=== PATIENT | male | born 1945 | race African-American/Black ===

== ENCOUNTER 2016-07-08 15:49 | Emergency (ER) | payer MEDICARE, MEDICAID ==
[~2016-07-08] VITALS: Ht 195.6 cm; Wt 123.7 kg
[~2016-07-08 15:49] MED LIST: 1-ME1LIQ PO; CIPR500T4 PO; COLE625 PO; ENAL20TA PO; GLIM4TAB PO; JANU100T PO; LIPI20TA PO; METF-324 PO; METF500 PO; METO50TA PO; ST JTAB PO
[2016-07-08 16:21] VITALS: BP 139/67; PULSE 68; RESP 18; TEMP 98.3; O2SAT 96
[2016-07-08] MEDS ORDERED: ENAL20TA PO (16:52)
[2016-07-08] MEDS ORDERED: METF1000 PO (16:52)
[2016-07-08] MEDS ORDERED: ATOR1TAB18 PO (16:52)
[2016-07-08] MEDS ORDERED: METO50TA PO (16:52)
[2016-07-08] MEDS ORDERED: AMLO10TA2 PO (16:52)
[2016-07-08] MEDS ORDERED: GLIM4TAB PO (16:52)
[2016-07-08] MEDS ORDERED: SITA1TAB2 PO (16:52)
[2016-07-08] MEDS ORDERED: ASPI1TAB69 PO (16:52)
[2016-07-08] MEDS ORDERED: WELC625T2 PO (16:52)
[2016-07-08] MEDS ORDERED: VENTAER INH (16:52)
[2016-07-08] MEDS ORDERED: SYMB80AE INH (16:52)
--- NOTE | 2016-07-08 16:56 | PD ---
HPI Chief Complaint: Complaint Time Seen by Provider: 16:53 Travel History International Travel<30 days: No Contact w/Intl Traveler<30days: No Traveled to known affect area: No History of Present Illness HPI 70-year-old male that presents to the ED for evaluation of cold-like symptoms for 2 weeks and urinary tract infection for the past week. Per patient she's been having cough and runny nose for the past 2 weeks. Per patient he has family over to his house who has been having cold-like symptoms. He does have a history of COPD in the past but denies any shortness of breath. Per patient he mostly has coughed doesn't go away as well as congestion. He denies any chest pain. Per patient the cough is productive. Medications disease reports that his been having some dysuria and polyuria. Urgency for the past week. 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 Patient states that he is not sure this is related but he will like this to be assessed as well. He denies any abdominal pain. No flank pain. No hematuria. Nothing seems to make the symptoms better or worse. His been taking OTC meds with minimal relief. He has no known allergies to medication. PFSH Past Medical History Hx Anticoagulant Therapy: Yes (asa 81mg) Cardiac Catheterization: Yes Cardiovascular Problems: Yes (htn on meds, ME x 2 with 2 stents , defib) High Cholesterol: Yes Chest Pain: Yes Coronary Artery Disease: Yes Diabetes: Yes (type 2) Patient Takes Glucophage: Yes Diminished Hearing: No Hypertension: Yes Immunizations Current: Yes (shingles also) Myocardial Infarction: Yes (X2) Past Surgical History Cardiac Surgery: Yes (AICD) Coronary Stent: Yes (x5) Pacemaker: Yes (AICD) Social History Alcohol Use: No Tobacco Use: No (QUIT 25+ YRS AGO SMOKED 3/4 PPD) Substance Use: No Allergies-Medications (Allergen,Severity, Reaction): Coded Allergies: No Known Allergies (Unverified , 07/08/16) Reported Meds & Prescriptions Reported Meds & Active Scripts Active Medrol Dosepak (Methylprednisolone) 4 Mg Dspk 4 Mg PO DIRECTED Per Pharmacist direction Tessalon Perles (Benzonatate) 100 Mg Cap 100 Mg PO TID PRN Cipro (Ciprofloxacin HCl) 500 Mg Tab 500 Mg PO BID 7 Days Reported Symbicort Inh (Budesonide/Formoterol Fumarate) 80-4.5 Mcg/Act Aero 2 Puff INH Q12HR Ventolin Hfa 18 GM Inh (Albuterol Sulfate) 90 Mcg/Act Aer 2 Puff INH Q4-6H PRN Welchol (Colesevelam HCl) 625 Mg Tab 1,875 Mg PO BID Amlodipine (Amlodipine Besylate) 10 Mg Tab 10 Mg PO DAILY Atorvastatin (Atorvastatin Calcium) 80 Mg Tab 80 Mg PO HS Aspirin 81 Mg Tabdr 81 Mg PO DAILY Januvia (Sitagliptin Phosphate) 100 Mg Tab 100 Mg PO DAILY Metoprolol Tartrate 50 Mg Tab 50 Mg PO BID Enalapril (Enalapril Maleate) 20 Mg Tab 20 Mg PO BID Glimepiride 4 Mg Tab 4 Mg PO BIDAC Metformin (Metformin HCl) 1,000 Mg Tab 1,000 Mg PO BIDPC With meals Review of Systems General / Constitutional: No: Fever, Chills, Weight Gain, Weight Loss, Other Eyes: No: Diploplia, Blurred Vision, Photophobia, Drainage, Redness, Foreign Body Sensation, Pain, Tearing, Blind Spots, Visual changes, Blindness, Other HENT: Positive: Rhinitis, Congestion, No: Headaches, Vertigo, Lightheadedness , Sore Throat, Rhinorrhea, Nosebleed, Neck Stiffness, Neck Pain, Masses, Gingival Bleeding, Dental Difficulties, Ear Discharge, Earache, Other Cardiovascular: No: Chest Pain or Discomfort, Palpitations, Irregular Rhythm, Tachycardia, Diaphoresis, Syncope, Dyspnea on exertion, Varicosities, Edema, Cyanosis, Varicosities, Phlebitis, Claudication, Other Respiratory: Positive: Cough, No: Shortness of Breath, Wheezing, Sneezing, Orthopnea, Hemoptysis, Stridor, Night Sweats, Pleuritic Pain, Other Gastrointestinal: No: Nausea, Vomiting, Diarrhea, Abdominal Pain, Hematemesis, Hematochezia, Constipation, Changes in Bowel Habits, Indigestion, Dysphagia, Loss of Appetite, Other Genitourinary: Positive: Urgency, Frequency, Dysuria, No: Nocturia, Hematuria , Decreased Urinary Output, Oliguria, Hesitancy, Dribbling, Incontinence, Pelvic Pain, Flank Pain, Dyspareunia, Discharge, Dysmenorrhea, Menorrhagia, Metorrhagia, Vaginal Bleeding, Other Musculoskeletal: No: Myalgias, Arthralgias, Limited ROM, Weakness, Cramping, Edema, Pain, Atrophy, Other Skin: No Rash, No Itching, No Dryness, No Lumps, No Hives, No Change in Pigmentation, No Change in nails, No Alopecia, No Lesions, No Breast Lumps, No Breast Tenderness, No Breast Swelling, No Other Neurologic: No: Weakness, Dizziness, Syncope, Focal Abnormalities, Coordination Problem, Tremor, Ataxia, Headache, Change in Mentation, Slurred Speech, Paresthesia, Incontinence, Seizures, Sensory Disturbance, Other Psychiatric: No: Anxiety, Depression, Suicidal Ideations, Disorder of Thought, Mood Disorder, Substance Abuse, Homicidal Ideation, Other Endocrine: No: Heat Intolerance, Cold Intolerance, Polyuria, Polydipsia, Other Hematologic/Lymphatic: No: Easy Bruising, Lymph Node Enlargement, Other Physical Exam Narrative GENERAL: Well-nourished, well-developed patient in no apparent distress. SKIN: Warm and dry. HEAD: Atraumatic. Normocephalic. EYES: Pupils equal and round reactive to light and accommodation. No scleral icterus. No injection or drainage. ENT: No nasal bleeding or discharge. Mucous membranes pink and moist. TMs are clear with no sign of infection or perforation. No mastoid tenderness. Ear canals are intact bilaterally. No lymphadenopathy. Nostril mucosa is red and moist with clear mucus noted. No sinus tenderness to palpation noted. Tonsils are not enlarged or swollen. No ulvua Deviation. Tongue is midline. NECK: Trachea midline. No JVD. No meningeal signs noted CARDIOVASCULAR: Regular rate and rhythm. RESPIRATORY: No accessory muscle use. Clear to auscultation. Breath sounds equal bilaterally. GASTROINTESTINAL: Abdomen soft, non-tender, nondistended. Hepatic and splenic margins not palpable. MUSCULOSKELETAL: Extremities without clubbing, cyanosis, or edema. No obvious deformities. NEUROLOGICAL: Awake and alert. No obvious cranial nerve deficits. Motor grossly within normal limits. Five out of 5 muscle strength in the arms and legs. Normal speech. PSYCHIATRIC: Appropriate mood and affect; insight and judgment normal. Data Data Last Documented VS Vital Signs Date Time Temp Pulse Resp B/P Pulse Ox O2 Delivery O2 Flow Rate FiO2 07/08/16 16:21 98.3 68 18 139/67 96 Orders Urinalysis - C+S If Indicated (07/08/16 16:47) Chest, Single Ap (07/08/16 ) Urine Culture (07/08/16 16:45) Labs Laboratory Tests Test 07/08/16 16:45 Urine Collection Type CLEAN CATCH Urine Color STRAW Urine Turbidity SLIGHT Urine pH 5.5 Urine Specific [place] 1.009 Urine Protein NEG mg/dL Urine Glucose (UA) 250 mg/dL Urine Ketones NEG mg/dL Urine Occult Blood NEG Urine Nitrite NEG Urine Bilirubin NEG Urine Leukocyte Esterase SMALL Urine RBC 0-3 /hpf Urine WBC 25-49 /hpf Urine WBC Clumps FEW Urine Squamous Epithelial 6-8 /hpf Cells Urine Amorphous Sediment FEW Urine Bacteria FEW /hpf Microscopic Urinalysis Comment CULTURE INDICATED Urine Collection Time 1645 MDM Medical Decision Making Medical Screen Exam Complete: Yes Emergency Medical Condition: Yes Medical Record Reviewed: Yes Interpretation(s) CXR negative for acute disease UA shows UTI Differential Diagnosis Sinusitis versus upper respiratory infection versus bronchitis versus pneumonia versus UTI Narrative Course 70-year-old male that presents to the ED for evaluation of cold-like symptoms and possible UTI. Patient was properly examined and was found to have signs and symptoms consistent appears to be bronchitis and possible UTI. Chest x-ray was done to rule out pneumonia as well as urinalysis to see if patient does have a UTI. Labs and imaging showed no sign of acute pneumonia. Patient was reassured. From history and physical this appears to be bronchitis. Patient's urine did show UTI. We'll treat this with Cipro to cover for both upper respiratory infection as well as urinary tract infection. Patient was given Tessalon Perles for cough. Medrol Dosepak to help with the congestion as well is a bronchitis versus patient does have a history of COPD. Patient was instructed that his sugars will likely go SECONDARY to the steroids. Told to follow up diet. Take OTC meds as needed. Follow up with PCP. See ED for worsening symptoms. Diagnosis Primary Impression: Bronchitis Additional Impression: UTI (urinary tract infection) Qualified Code: N30.00 - Acute cystitis without hematuria Patient Instructions: General Instructions Additional Instructions: Motrin and Tylenol for pain and fever. You can use [id number] antihistamine as well as well as Mucinex as needed for runny nose and congestion. Cough drops for cough as needed. Drink plenty of fluids. Follow-up with PCP. See ED for worsening symptoms. Med/Other Pt SpecificInfo: Prescription(s) given Scripts Methylprednisolone Dosepak (Medrol Dosepak)4 Mg Dspk4 Mg PO DIRECTED #1 DSPK Ref 0 Per Pharmacist direction Prov:Elliott Guzman MD 07/08/16 Benzonatate (Tessalon Perles)100 Mg [id number] Mg PO TID PRN (COUGH) #20 CAP Prov:Elliott Guzman MD 07/08/16 Ciprofloxacin (Cipro)500 Mg [id number] Mg PO BID 7 Days Prov:Elliott Guzman MD 07/08/16 Disposition: 01 DISCHARGE HOME Condition: Matt Benjamin Jul 08, 2016 16:56
[2016-07-08 16:59] LABS: BLOOD, URINE NEG (NEG); GLUCOSE,URINE 250 mg/dL (NEG); KETONE, URINE NEG (NEG); NITRITE,URINE NEG (NEG); PH, URINE 5.5 (5.0-8.5)
[2016-07-08 17:01] LABS: METHOD OF COLLECTION CLEAN CATCH
[2016-07-08 17:02] LABS: URINE COLOR STRAW (YELLW/STRAW)
[2016-07-08 17:03] LABS: BACTERIA, URINE FEW /hpf; CULTURE IF INDICATED CULTURE INDICATED; RBC, URINE 0-3 /hpf (0-3)
[2016-07-08 17:04] LABS: COMMENT (UR) CULTURE INDICATED; COMMENT2 (UR) MUCOUS PRESENT
[2016-07-08] MEDS ORDERED: MEDR4PAK PO (17:16)
[2016-07-08] MEDS ORDERED: BENZ100 PO (17:16)
[2016-07-08] MEDS ORDERED: CIPR-9 PO (17:16)
--- NOTE | 2016-07-08 18:34 | RADHPO ---
EXAM DATE/TIME: 07/08/2016 17:45 [facility] COMPARISON: CHEST SINGLE AP, July 24, 2015, 13:45. INDICATIONS : Cough, short of breath MEDICAL HISTORY : Diabetes mellitus type II. SURGICAL HISTORY : Pacemaker. ENCOUNTER: Initial ACUITY: 2 weeks PAIN SCORE: 0/10 LOCATION: Bilateral chest FINDINGS: A single view of the chest demonstrates the lungs to be symmetrically aerated without evidence of mas s, infiltrate or effusion. There is mild scarring and/or atelectasis at the left lung base. The cardi omediastinal contours are unremarkable. Osseous structures are intact. The left subclavian transveno us pacer remains in place. CONCLUSION: 1. Mild scarring and/or atelectasis at the left lung base. 2. No evidence of pneumonia. Luis Abraham MD on July 08, 2016 at 18:32 Board Certified Radiologist. This report was verified electronically.
== END 2016-07-08 18:50 | disposition home or self-care (01) ==
LOC: PHEFT 15:49
DX: J40 Bronchitis, not specified as acute or chronic (principal); N30.00 Acute cystitis without hematuria; B95.7 Other staphylococcus as the cause of diseases classified elsewhere; E11.9 Type 2 diabetes mellitus without complications; I10 Essential (primary) hypertension; E78.00 Pure hypercholesterolemia, unspecified; Z79.82 Long term (current) use of aspirin; Z79.84 Long term (current) use of oral hypoglycemic drugs; Z87.09 Personal history of other diseases of the respiratory system; Z86.79 Personal history of other diseases of the circulatory system; Z87.891 Personal history of nicotine dependence
CPT/HCPCS: 71010; 81001; 86403; 87077; 87086; 87186; 99283

== ENCOUNTER 2016-12-28 11:32 | Emergency (ER) | payer OTHER, MEDICAID ==
[~2016-12-28 11:32] MED LIST changes: -1-ME1LIQ PO; +AMLO10TA2 PO; +ASPI1TAB69 PO; +ATOR1TAB18 PO; +BENZ100 PO; +CIPR-9 PO; -CIPR500T4 PO; -COLE625 PO; -JANU100T PO; -LIPI20TA PO; +MEDR4PAK PO; -METF-324 PO; +METF1000 PO; -METF500 PO; +SITA1TAB2 PO; -ST JTAB PO; +SYMB80AE INH; +VENTAER INH; +WELC625T2 PO
[2016-12-28 11:45] VITALS: BP 180/90; PULSE 76; RESP 22; TEMP 99; O2SAT 95
[2016-12-28] MEDS ORDERED: ASPI81CH CHEW (11:51)
--- NOTE | 2016-12-28 11:55 | PD ---
HPI Chief Complaint: Respiratory Distress Time Seen by Provider: 11:41 Travel History International Travel<30 days: No Contact w/Intl Traveler<30days: No Traveled to known affect area: No History of Present Illness HPI The patient is a 71-year-old [place] male who presents emergency department for shortness of breath and cough. The patient states he developed a dry and nonproductive cough 3 days ago. He then developed bilateral anterior abdominal wall pain secondary to the coughing. The patient was seen by his primary physician yesterday, Dr. Camilo Navas, who prescribed him to medications. The patient does not know the names of his medications. The patient states he awakened this morning with mild shortness of breath. The patient was prescribed Symbicort and a Ventolin inhaler in the past, is unsure why, but denies any known history of COPD or bronchitis. The patient denies any history congestive heart failure, however, does state he has a pacemaker in place. He denies any acute chest pain, nausea, vomiting, chills, or sweats. He denies any lower extremity edema. The patient denies any history of pulmonary embolism or DVT. PFSH Past Medical History Hx Anticoagulant Therapy: Yes (asa 81mg) Cardiac Catheterization: Yes Cardiovascular Problems: Yes (AICD) High Cholesterol: Yes Chest Pain: Yes Coronary Artery Disease: Yes Diabetes: Yes (type 2) Diminished Hearing: No Hypertension: Yes Immunizations Current: Yes (shingles also) Myocardial Infarction: Yes (X2) Past Surgical History Cardiac Surgery: Yes (AICD) Coronary Stent: Yes (x5) Pacemaker: Yes (AICD) Social History Alcohol Use: No Tobacco Use: No (QUIT 25+ YRS AGO SMOKED 3/4 PPD) Substance Use: No Allergies-Medications (Allergen,Severity, Reaction): Coded Allergies: No Known Allergies (Unverified , 07/08/16) Reported Meds & Prescriptions Reported Meds & Active Scripts Active Medrol Dosepak (Methylprednisolone) 4 Mg Dspk 4 Mg PO DIRECTED Per Pharmacist direction Tessalon Perles (Benzonatate) 100 Mg Cap 100 Mg PO TID PRN Cipro (Ciprofloxacin HCl) 500 Mg Tab 500 Mg PO BID 7 Days Reported Aspirin 81 Mg Chew 81 Mg CHEW DAILY Symbicort Inh (Budesonide/Formoterol Fumarate) 80-4.5 Mcg/Act Aero 2 Puff INH Q12HR Ventolin Hfa 18 GM Inh (Albuterol Sulfate) 90 Mcg/Act Aer 2 Puff INH Q4-6H PRN Welchol (Colesevelam HCl) 625 Mg Tab 1,875 Mg PO BID Amlodipine (Amlodipine Besylate) 10 Mg Tab 10 Mg PO DAILY Atorvastatin (Atorvastatin Calcium) 80 Mg Tab 80 Mg PO HS Januvia (Sitagliptin Phosphate) 100 Mg Tab 100 Mg PO DAILY Metoprolol Tartrate 50 Mg Tab 50 Mg PO BID Enalapril (Enalapril Maleate) 20 Mg Tab 20 Mg PO BID Glimepiride 4 Mg Tab 4 Mg PO BIDAC Metformin (Metformin HCl) 1,000 Mg Tab 1,000 Mg PO BIDPC With meals Review of Systems Except as stated in HPI: all other systems reviewed are Neg General / Constitutional: No: Fever Cardiovascular: No: Chest Pain or Discomfort Respiratory: Positive: Cough, Shortness of Breath, Wheezing Gastrointestinal: No: Nausea, Vomiting Musculoskeletal: No: Edema Neurologic: No: Dizziness Physical Exam Narrative GENERAL: Awake, alert, pleasant 71-year-old male who appears his stated age and is in no acute respiratory distress. SKIN: Focused skin assessment warm/dry. HEAD: Atraumatic. Normocephalic. EYES: Pupils equal and round. No scleral icterus. No injection or drainage. ENT: No nasal bleeding or discharge. Mucous membranes pink and moist. NECK: Trachea midline. No JVD. CARDIOVASCULAR: Regular rate and rhythm. No murmur appreciated. Pacemaker in place left chest wall. RESPIRATORY: No accessory muscle use. Prolonged expiratory phase with wheezes in all 4 lung sheehan. GASTROINTESTINAL: Abdomen soft, non-tender, nondistended. No rebound tenderness. MUSCULOSKELETAL: No obvious deformities. No clubbing. No cyanosis. Trace edema to lower chin bilaterally. NEUROLOGICAL: Awake and alert. No obvious cranial nerve deficits. Motor grossly within normal limits. Normal speech. PSYCHIATRIC: Appropriate mood and affect; insight and judgment normal. Data Data Last Documented VS Vital Signs Date Time Temp Pulse Resp B/P (MAP) Pulse Ox O2 Delivery O2 Flow Rate FiO2 12/28/16 12:02 22 96 Room Air 12/28/16 11:45 99.0 76 180/90 (120) Orders Orders Complete Blood Count With Diff (12/28/16 11:49) Comprehensive Metabolic Panel (12/28/16 11:49) B-Type Natriuretic Peptide (12/28/16 11:49) Magnesium (Mg) (12/28/16 11:49) Ckmb (Isoenzyme) Profile (12/28/16 11:49) Troponin I (12/28/16 11:49) Iv Access Insert/Monitor (12/28/16 11:49) Electrocardiogram (12/28/16 11:49) Ecg Monitoring (12/28/16 11:49) Oximetry (12/28/16 11:49) Oxygen Administration (12/28/16 11:49) Chest, Single Ap (12/28/16 11:49) Sodium Chloride 0.9% Flush (Ns Flush) (12/28/16 12:00) Methylprednisolone So Succ Inj (Solumedr (12/28/16 12:00) Albuterol-Ipratropium Neb (Duoneb Neb) (12/28/16 12:00) Lidocaine Pf 4% Neb (Lidocaine Pf 4% Neb (12/28/16 12:00) CKMB (12/28/16 11:45) CKMB% (12/28/16 11:45) Labs Laboratory Tests Test 12/28/16 11:45 White Blood Count 5.4 TH/MM3 Red Blood Count 3.99 MIL/MM3 Hemoglobin 10.8 GM/DL Hematocrit 33.5 % Mean Corpuscular Volume 83.9 FL Mean Corpuscular Hemoglobin 27.0 PG Mean Corpuscular Hemoglobin Concent 32.2 % Red Cell Distribution Width 13.9 % Platelet Count 127 TH/MM3 Mean Platelet Volume 9.5 FL Neutrophils (%) (Auto) 64.4 % Lymphocytes (%) (Auto) 11.7 % Monocytes (%) (Auto) 14.4 % Eosinophils (%) (Auto) 9.2 % Basophils (%) (Auto) 0.3 % Neutrophils # (Auto) 3.5 TH/MM3 Lymphocytes # (Auto) 0.6 TH/MM3 Monocytes # (Auto) 0.8 TH/MM3 Eosinophils # (Auto) 0.5 TH/MM3 Basophils # (Auto) 0.0 TH/MM3 CBC Comment DIFF FINAL Differential Comment Blood Urea Nitrogen 19 MG/DL Creatinine 1.30 MG/DL Random Glucose 231 MG/DL Total Protein 7.8 GM/DL Albumin 4.1 GM/DL Calcium Level 9.5 MG/DL Magnesium Level 1.5 MG/DL Alkaline Phosphatase 81 U/L Aspartate Amino Transf (AST/SGOT) 15 U/L Alanine Aminotransferase (ALT/SGPT) 23 U/L Total Bilirubin 0.5 MG/DL Sodium Level 136 MEQ/L Potassium Level 4.3 MEQ/L Chloride Level 105 MEQ/L Carbon Dioxide Level 22.8 MEQ/L Anion Gap 8 MEQ/L Estimat Glomerular Filtration Rate 66 ML/MIN Total Creatine Kinase 126 U/L Creatine Kinase MB 1.9 NG/ML Troponin I LESS THAN 0.02 NG/ML B-Type Natriuretic Peptide 136 PG/ML MDM Medical Decision Making Medical Screen Exam Complete: Yes Emergency Medical Condition: Yes Medical Record Reviewed: Yes Interpretation(s) EKG reveals sinus rhythm with a rate of 71. First-degree AV block with IA interval 224 ms. Left bundle branch block. Left bundle-branch block appears new from EKG last seen on July 24, 2015. Patient does have pacemaker in place. Laboratory Tests Test 12/28/16 11:45 White Blood Count 5.4 TH/MM3 Red Blood Count 3.99 MIL/MM3 Hemoglobin 10.8 GM/DL Hematocrit 33.5 % Mean Corpuscular Volume 83.9 FL Mean Corpuscular Hemoglobin 27.0 PG Mean Corpuscular Hemoglobin Concent 32.2 % Red Cell Distribution Width 13.9 % Platelet Count 127 TH/MM3 Mean Platelet Volume 9.5 FL Neutrophils (%) (Auto) 64.4 % Lymphocytes (%) (Auto) 11.7 % Monocytes (%) (Auto) 14.4 % Eosinophils (%) (Auto) 9.2 % Basophils (%) (Auto) 0.3 % Neutrophils # (Auto) 3.5 TH/MM3 Lymphocytes # (Auto) 0.6 TH/MM3 Monocytes # (Auto) 0.8 TH/MM3 Eosinophils # (Auto) 0.5 TH/MM3 Basophils # (Auto) 0.0 TH/MM3 CBC Comment DIFF FINAL Differential Comment Blood Urea Nitrogen 19 MG/DL Creatinine 1.30 MG/DL Random Glucose 231 MG/DL Total Protein 7.8 GM/DL Albumin 4.1 GM/DL Calcium Level 9.5 MG/DL Magnesium Level 1.5 MG/DL Alkaline Phosphatase 81 U/L Aspartate Amino Transf (AST/SGOT) 15 U/L Alanine Aminotransferase (ALT/SGPT) 23 U/L Total Bilirubin 0.5 MG/DL Sodium Level 136 MEQ/L Potassium Level 4.3 MEQ/L Chloride Level 105 MEQ/L Carbon Dioxide Level 22.8 MEQ/L Anion Gap 8 MEQ/L Estimat Glomerular Filtration Rate 66 ML/MIN Total Creatine Kinase 126 U/L Creatine Kinase MB 1.9 NG/ML Troponin I LESS THAN 0.02 NG/ML B-Type Natriuretic Peptide 136 PG/ML Chest x-ray reveals minimal bibasilar parenchymal changes with mild compensated cardiomegaly. Differential Diagnosis Differential diagnoses includes congestive heart failure, bronchitis, COPD, pneumonia, pleural effusion, flash pulmonary edema, acute coronary syndrome, pulmonary embolism. Narrative Course IV was established, labs are drawn and sent, and the patient was placed on cardiac telemetry monitoring and continuous pulse oximetry monitoring. EKG was ordered and interpreted. Chest x-ray was obtained. The patient was administered site Medrol 120, grams intravenously and duo nebs 2 with respiratory lidocaine. BNP was sent to lab. Chest x-ray revealed bibasilar parenchymal changes and mild compensated cardiomegaly, otherwise unremarkable. BNP was mildly elevated over 100, troponin was negative. The patient was reevaluated at 12:45 PM. The patient's wheezing has significantly improved, he did complain of nasal congestion. Patient was advised he is Afrin at night as needed for 2 days duration, [id number] Claritin as needed but not with the decongestion secondary to a history of hypertension. The patient is advised to continue the Zithromax as previously directed, steroids and albuterol inhaler as directed. The patient will be provided a copy of his x- ray results and lab results at discharge. Diagnosis Primary Impression: Bronchitis Patient Instructions: General Instructions Additional Instructions: Please provide a patient a copy of his labs and x-ray results at discharge. Follow-up with your primary physician. Return if symptoms worsen or progress. Take Zithromax as directed by her doctor yesterday. Med/Other Pt SpecificInfo: Prescription(s) given Scripts Albuterol 18 GM Inh (Ventolin Hfa 18 GM Inh) 90 Mcg/Act Aer 2 PUFF INH Q4H Y for SHORTNESS OF BREATH, #1 INHALER 0 Refills Prov: Lorne Ceballos MD 12/28/16 Prednisone (Deltasone) 20 Mg Tab 40 MG PO DAILY for 4 Days, TAB 0 Refills Prov: Lorne Ceballos MD 12/28/16 Disposition: 01 DISCHARGE HOME Condition: Stable Lorne Ceballos MD Dec 28, 2016 11:55
[2016-12-28 12:00] VITALS: O2SAT 94
[2016-12-28] MEDS ORDERED: RESP: LIDOCAINE HCL 4% PF 5 ML NEB NEB ONE (12:00)
[2016-12-28] MEDS ORDERED: methylPREDNISolone SOD SUCC 125 MG/2 ML VIAL IVP ONE (12:00)
[2016-12-28] MEDS ORDERED: SODIUM CHLORIDE 0.9% FLUSH 10 ML FLUSH IVF PRN (12:00)
[2016-12-28 12:03] LABS: AUTOMATED NEUTROPHIL # 3.5 TH/MM3 (1.8-7.7); BASOPHIL % 0.3 % (0.0-2.0); EOSINOPHIL # 0.5 TH/MM3 (0-0.4); EOSINOPHIL % 9.2 % (0.0-4.0); HEMATOCRIT 33.5 % (39.0-51.0); HEMO FLAGS DIFF FINAL; LYMPH % 11.7 % (9.0-44.0); LYMPHOCYTE # 0.6 TH/MM3 (1.0-4.8); MEAN CELL VOLUME 83.9 FL (80.0-100.0); MEAN CORPUSCULAR HGB CONC 32.2 % (32.0-36.0); MONO % 14.4 % (0.0-8.0); NEUT % 64.4 % (16.0-70.0); PLATELET COUNT 127 TH/MM3 (150-450); RED BLOOD COUNT 3.99 MIL/MM3 (4.50-5.90); RED CELL DISTRIBUTION WIDTH 13.9 % (11.6-17.2); WHITE BLOOD COUNT 5.4 TH/MM3 (4.0-11.0)
[2016-12-28 12:08] LABS: CHLORIDE 105 MEQ/L (98-107); POTASSIUM 4.3 MEQ/L (3.5-5.1); SODIUM (NA) 136 MEQ/L (136-145)
[2016-12-28] MEDS: RESP: ALBUTEROL 2.5 MG/IPRATROPIUM 0.5 MG NEB (SCH) INH (12:08)
[2016-12-28 12:12] LABS: ANION GAP 8 MEQ/L (5-15); BICARBONATE 22.8 MEQ/L (21.0-32.0); BLOOD UREA NITROGEN 19 MG/DL (7-18); MAGNESIUM 1.5 MG/DL (1.5-2.5)
[2016-12-28 12:15] LABS: ALT (GPT) 23 U/L (12-78); AST (GOT) 15 U/L (15-37); GLOMERULAR FILTRATION RATE 66 ML/MIN (>89)
[2016-12-28 12:17] LABS: TOTAL BILIRUBIN ADULT 0.5 MG/DL (0.2-1.0)
[2016-12-28 12:18] LABS: ALKALINE PHOSPHATASE 81 U/L (45-117); CREATINE KINASE 126 U/L (39-308)
[2016-12-28 12:31] LABS: CKMB 1.9 NG/ML (0.5-3.6)
--- NOTE | 2016-12-28 12:35 | RADRPT ---
EXAM DATE/TIME: 12/28/2016 12:21 [facility] COMPARISON: CHEST SINGLE AP, July 08, 2016, 17:45. INDICATIONS : Short of breath MEDICAL HISTORY : Myocardial infarction. Hypertension Hypercholesterolemia. SURGICAL HISTORY : Pacemaker. Coronary artery stent. ENCOUNTER: Initial ACUITY: 1 day PAIN SCORE: 0/10 LOCATION: Bilateral chest FINDINGS: Minimal bibasilar parenchymal changes are evident.. Pacer on the left with mild compensated cardiome clement. The portion of the bony skeleton visualized is unremarkable. CONCLUSION: Minimal bibasilar parenchymal changes with mild compensated cardiomegaly. Preston Manriquez MD FACR on December 28, 2016 at 12:32 Board Certified Radiologist. This report was verified electronically.
[2016-12-28] MEDS ORDERED: VENTAER INH (12:51)
[2016-12-28] MEDS ORDERED: PRED-503 PO (12:51)
[2016-12-28 13:32] VITALS: BP 137/70
--- NOTE | 2016-12-29 13:36 | EKG ---
Date Performed: 12/28/2016 Time Performed: 11:55:06 PTAGE: 71 years EKG: Sinus rhythm WITH FIRST DEGREE AV BLOCK LEFT BUNDLE BRANCH BLOCK ABNORMAL ECG PREVIOUS TRACING : 07/24/2015 13.23 Since the prior tracing, QRS duration is wider. DOCTOR: Saeid Sullivan Interpretating Date/Time 12/29/2016 13:34:40
== END 2016-12-28 13:34 | disposition home or self-care (01) ==
LOC: PHED 11:32
DX: J40 Bronchitis, not specified as acute or chronic (principal); R94.31 Abnormal electrocardiogram [ECG] [EKG]; I25.10 Atherosclerotic heart disease of native coronary artery without angina pectoris; E11.9 Type 2 diabetes mellitus without complications; Z79.84 Long term (current) use of oral hypoglycemic drugs; Z95.810 Presence of automatic (implantable) cardiac defibrillator; Z95.5 Presence of coronary angioplasty implant and graft
CPT/HCPCS: 71010; 80053; 82550; 82552; 83735; 83880; 84484; 85025; 93005; 94640; 94664; 96374; 99285; J2930

== ENCOUNTER 2017-04-29 21:31 | Emergency (ER) | payer MEDICAID, OTHER ==
[~2017-04-29] VITALS: Ht 195.6 cm; Wt 125.2 kg
[~2017-04-29 21:31] MED LIST changes: +ASPI-516 CHEW; -ASPI1TAB69 PO; -ATOR1TAB18 PO; +ATOR80TA45 PO; +COLE625 PO; +PRED-503 PO; -WELC625T2 PO
[2017-04-29 21:36] VITALS: BP 163/76; PULSE 88; RESP 20; TEMP 99; O2SAT 96
[2017-04-29 22:00] VITALS: BP 149/66; PULSE 76; RESP 16; O2SAT 94
[2017-04-29] MEDS ORDERED: SODIUM CHLORIDE 0.9% FLUSH 10 ML FLUSH IVF PRN (22:00)
[2017-04-29 22:02] VITALS: RESP 18; O2SAT 94
--- NOTE | 2017-04-29 22:25 | RADRPT ---
EXAM DATE/TIME: 04/29/2017 22:04 [facility] COMPARISON: CHEST SINGLE AP, December 28, 2016, 12:21. INDICATIONS : Shortness of breath. MEDICAL HISTORY : Hypertension. Myocardial infarction. Hypercholesterolemia. SURGICAL HISTORY : Pacemaker. Coronary artery stent. ENCOUNTER: Initial ACUITY: 1 day PAIN SCORE: 0/10 LOCATION: Bilateral chest FINDINGS: A single view of the chest demonstrates the lungs to be symmetrically aerated without evidence of mas s, infiltrate or effusion. The cardiomediastinal contours are unremarkable. Osseous structures are intact. CONCLUSION: Normal examination. Left subclavian pacemaker in good position Igor Cruz MD on April 29, 2017 at 22:22 Board Certified Radiologist. This report was verified electronically.
[2017-04-29 22:31] LABS: AUTOMATED NEUTROPHIL # 10.4 TH/MM3 (1.8-7.7); BASOPHIL % 0.1 % (0.0-2.0); EOSINOPHIL # 0.1 TH/MM3 (0-0.4); EOSINOPHIL % 1.2 % (0.0-4.0); HEMATOCRIT 27.2 % (39.0-51.0); HEMOGLOBIN 8.8 GM/DL (13.0-17.0); LYMPH % 7.2 % (9.0-44.0); LYMPHOCYTE # 0.9 TH/MM3 (1.0-4.8); MEAN CELL VOLUME 80.9 FL (80.0-100.0); MEAN CORPUSCULAR HEMOGLOBIN 26.1 PG (27.0-34.0); MEAN CORPUSCULAR HGB CONC 32.2 % (32.0-36.0); MEAN PLATELET VOLUME 8.2 FL (7.0-11.0); MONO % 9.1 % (0.0-8.0); MONOCYTE # 1.1 TH/MM3 (0-0.9); NEUT % 82.4 % (16.0-70.0); PLATELET COUNT 206 TH/MM3 (150-450); RED BLOOD COUNT 3.36 MIL/MM3 (4.50-5.90); RED CELL DISTRIBUTION WIDTH 13.7 % (11.6-17.2); WHITE BLOOD COUNT 12.5 TH/MM3 (4.0-11.0)
[2017-04-29 23:30] VITALS: BP 121/49; PULSE 60; RESP 14; O2SAT 94
--- NOTE | 2017-04-29 23:42 | PD ---
HPI Chief Complaint: Respiratory Symptoms Time Seen by Provider: 21:41 Travel History International Travel<30 days: No Contact w/Intl Traveler<30days: No Traveled to known affect area: No History of Present Illness HPI Patient is a 71-year-old male comes in complaining of shortness of breath. He says the shortness of breath only comes on when he is in his house. He went to see his doctor today who prescribed him an inhaler as well has azithromycin and Tessalon Perles. He says he went home he started the medications, but he felt sort of breath, so he came into the emergency department. Currently he is feeling fine. He denies having any pain. He denies any chest pain. He denies fever or chills. He denies any coughing. He says he has not used his inhaler, because it prevents him from sleeping. PFSH Past Medical History Hx Anticoagulant Therapy: Yes (asa 81mg) Cardiac Catheterization: Yes Cardiovascular Problems: Yes ([place]) High Cholesterol: Yes Chest Pain: Yes Coronary Artery Disease: Yes Diabetes: Yes Patient Takes Glucophage: Yes Diminished Hearing: No Hypertension: Yes Immunizations Current: Yes (shingles also) Myocardial Infarction: Yes (X2) Tetanus Vaccination: Unknown Influenza Vaccination: No Past Surgical History Cardiac Surgery: Yes (AICD) Coronary Stent: Yes (x5) Pacemaker: Yes (AICD) Social History Alcohol Use: No Tobacco Use: No (QUIT ABOUT 1989/ SMOKED 3/ PPD) Substance Use: No Allergies-Medications (Allergen,Severity, Reaction): Coded Allergies: No Known Allergies (Unverified Adverse Reaction, Unknown, 04/29/17) Reported Meds & Prescriptions Reported Meds & Active Scripts Active Tessalon Perles (Benzonatate) 100 Mg Cap 100 Mg PO TID PRN Reported Zithromax Z-Benson (Azithromycin) 250 Mg Dspk 250 Mg PO DIRECTED 500 MG (2 tabs) day 1, then 1 tab days 2-5. Aspirin 81 Mg Chew 81 Mg CHEW DAILY Symbicort Inh (Budesonide/Formoterol Fumarate) 80-4.5 Mcg/Act Aero 2 Puff INH Q12HR Ventolin Hfa 18 GM Inh (Albuterol Sulfate) 90 Mcg/Act Aer 2 Puff INH Q4-6H PRN Welchol (Colesevelam HCl) 625 Mg Tab 1,875 Mg PO BID Amlodipine (Amlodipine Besylate) 10 Mg Tab 10 Mg PO DAILY Atorvastatin (Atorvastatin Calcium) 80 Mg Tab 80 Mg PO HS Januvia (Sitagliptin Phosphate) 100 Mg Tab 100 Mg PO DAILY Metoprolol Tartrate 50 Mg Tab 50 Mg PO BID Enalapril (Enalapril Maleate) 20 Mg Tab 20 Mg PO BID Glimepiride 4 Mg Tab 4 Mg PO BIDAC Metformin (Metformin HCl) 1,000 Mg Tab 1,000 Mg PO BIDPC With meals Review of Systems Except as stated in HPI: all other systems reviewed are Neg General / Constitutional: No: Fever, Chills Eyes: No: Photophobia HENT: No: Headaches, Lightheadedness Cardiovascular: No: Chest Pain or Discomfort Respiratory: Positive: Shortness of Breath Gastrointestinal: No: Nausea, Vomiting, Abdominal Pain Musculoskeletal: No: Myalgias, Pain Skin: No Rash, No Change in Pigmentation Neurologic: No: Weakness, Dizziness Physical Exam Narrative GENERAL: Awake and alert, in no acute distress. SKIN: Focused skin assessment warm/dry. HEAD: Atraumatic. Normocephalic. EYES: Pupils equal and round. No scleral icterus. ENT: Mucous membranes pink and moist. NECK: Trachea midline. No JVD. CARDIOVASCULAR: Regular rate and rhythm. No murmur appreciated. RESPIRATORY: No accessory muscle use. Clear to auscultation. Breath sounds equal bilaterally. GASTROINTESTINAL: Abdomen soft, non-tender, nondistended. MUSCULOSKELETAL: No obvious deformities. No clubbing. No cyanosis. 2+ bilateral lower extremity edema. No calf tenderness. NEUROLOGICAL: Awake and alert. No obvious cranial nerve deficits. Motor grossly within normal limits. Normal speech. PSYCHIATRIC: Appropriate mood and affect; insight and judgment normal. Data Data Last Documented VS Vital Signs Date Time Temp Pulse Resp B/P (MAP) Pulse Ox O2 Delivery O2 Flow Rate FiO2 04/29/17 23:30 60 14 121/49 (73) 94 Room Air 04/29/17 21:36 99.0 Orders Orders Complete Blood Count With Diff (04/29/17 21:57) Comprehensive Metabolic Panel (04/29/17 21:57) B-Type Natriuretic Peptide (04/29/17 21:57) Troponin I (04/29/17 21:57) Iv Access Insert/Monitor (04/29/17 21:57) Electrocardiogram (04/29/17 21:57) Ecg Monitoring (04/29/17 21:57) Oximetry (04/29/17 21:57) Oxygen Administration (04/29/17 21:57) Chest, Single Ap (04/29/17 21:57) Sodium Chloride 0.9% Flush (Ns Flush) (04/29/17 22:00) Labs Laboratory Tests Test 04/29/17 22:15 White Blood Count 12.5 TH/MM3 Red Blood Count 3.36 MIL/MM3 Hemoglobin 8.8 GM/DL Hematocrit 27.2 % Mean Corpuscular Volume 80.9 FL Mean Corpuscular Hemoglobin 26.1 PG Mean Corpuscular Hemoglobin Concent 32.2 % Red Cell Distribution Width 13.7 % Platelet Count 206 TH/MM3 Mean Platelet Volume 8.2 FL Neutrophils (%) (Auto) 82.4 % Lymphocytes (%) (Auto) 7.2 % Monocytes (%) (Auto) 9.1 % Eosinophils (%) (Auto) 1.2 % Basophils (%) (Auto) 0.1 % Neutrophils # (Auto) 10.4 TH/MM3 Lymphocytes # (Auto) 0.9 TH/MM3 Monocytes # (Auto) 1.1 TH/MM3 Eosinophils # (Auto) 0.1 TH/MM3 Basophils # (Auto) 0.0 TH/MM3 CBC Comment DIFF FINAL Differential Comment Blood Urea Nitrogen 28 MG/DL Creatinine 1.39 MG/DL Random Glucose 237 MG/DL Total Protein 8.0 GM/DL Albumin 3.5 GM/DL Calcium Level 9.7 MG/DL Alkaline Phosphatase 99 U/L Aspartate Amino Transf (AST/SGOT) 7 U/L Alanine Aminotransferase (ALT/SGPT) 14 U/L Total Bilirubin 0.5 MG/DL Sodium Level 136 MEQ/L Potassium Level 4.4 MEQ/L Chloride Level 105 MEQ/L Carbon Dioxide Level 23.5 MEQ/L Anion Gap 8 MEQ/L Estimat Glomerular Filtration Rate 61 ML/MIN Troponin I LESS THAN 0.02 NG/ML B-Type Natriuretic Peptide 345 PG/ML [facility] Medical Decision Making Medical Screen Exam Complete: Yes Emergency Medical Condition: Yes Medical Record Reviewed: Yes Interpretation(s) ECG shows normal sinus rhythm at 73, left bundle branch block. This is unchanged from his previous EKG. Differential Diagnosis COPD exacerbation versus bronchitis versus pneumonia versus allergies Narrative Course patient is a 71-year-old male who comes in complaining of shortness of breath. Currently he is not short of breath, and only feels short of breath when he goes home. Exam shows no acute abnormalities. IV established, labs sent. Labs show a hemoglobin of 8.8. Patient is informed of these results. Advised to take iron and follow-up with his doctor. Chest x-ray shows no acute abnormalities. Patient advised to try humidifier at home. Advised to continue the medications that his primary physician prescribed and to follow-up with her. Advised to return any time for any worsening symptoms. Diagnosis Primary Impression: Shortness of breath Patient Instructions: General Instructions, Shortness of Breath (ED) Additional Instructions: Continue to take your medications as prescribed. Try using a humidifier home. Use her albuterol as needed. Follow-up with your doctor. Return to the ED as needed for any worsening symptoms. Disposition: 01 DISCHARGE HOME Condition: Stable Isabelle Varner MD Apr 29, 2017 23:42
[2017-04-30 00:05] LABS: ALBUMIN 3.5 GM/DL (3.4-5.0); ALT (GPT) 14 U/L (12-78); AST (GOT) 7 U/L (15-37); BICARBONATE 23.5 MEQ/L (21.0-32.0); BLOOD UREA NITROGEN 28 MG/DL (7-18); CALCIUM 9.7 MG/DL (8.5-10.1); CHLORIDE 105 MEQ/L (98-107); CREATININE 1.39 MG/DL (0.60-1.30); GLOMERULAR FILTRATION RATE 61 ML/MIN (>89); GLUCOSE,RANDOM 237 MG/DL (74-106); SODIUM (NA) 136 MEQ/L (136-145)
[2017-04-30 00:09] LABS: ALKALINE PHOSPHATASE 99 U/L (45-117); TOTAL BILIRUBIN ADULT 0.5 MG/DL (0.2-1.0); TROPONIN I LESS THAN 0.02 NG/ML (0.02-0.05)
[2017-04-30] MEDS ORDERED: ZITHTAB PO (00:24)
[2017-04-30 00:30] VITALS: BP 115/52; PULSE 66; RESP 16; O2SAT 94
--- NOTE | 2017-04-30 15:22 | EKG ---
Date Performed: 04/29/2017 Time Performed: 22:17:08 PTAGE: 71 years EKG: Sinus rhythm WITH FIRST DEGREE AV BLOCK LEFT BUNDLE BRANCH BLOCK ABNORMAL ECG PREVIOUS TRACING : 12/28/2016 11.55 Compared to prior tracing no significant change DOCTOR: Emeka Andrade Interpretating Date/Time 04/30/2017 15:21:02
== END 2017-04-30 00:45 | disposition home or self-care (01) ==
LOC: PHED 21:31
DX: R06.02 Shortness of breath (principal); E78.00 Pure hypercholesterolemia, unspecified; E11.9 Type 2 diabetes mellitus without complications; I25.10 Atherosclerotic heart disease of native coronary artery without angina pectoris; I10 Essential (primary) hypertension; I25.2 Old myocardial infarction; R94.31 Abnormal electrocardiogram [ECG] [EKG]; Z87.891 Personal history of nicotine dependence
CPT/HCPCS: 71045; 80053; 83880; 84484; 85025; 93005; 99285

== ENCOUNTER 2017-06-06 23:25 | Emergency (ER) | payer MEDICAID, OTHER ==
[~2017-06-06 23:25] MED LIST changes: -CIPR-9 PO; -MEDR4PAK PO; -PRED-503 PO; +ZITHTAB PO
[2017-06-06] MEDS ORDERED: EPINEPHrine HCL (1:10,000) 1 MG/10 ML SYRINGE IV ONE (23:26)
[2017-06-06] MEDS ORDERED: ATROPINE SULFATE 1 MG/10 ML SYRINGE IV ONE (23:26)
[2017-06-06] MEDS ORDERED: SODIUM BICARBONATE 8.4% INJ 50 MEQ/50 ML SYR IV ONE (23:26)
--- NOTE | 2017-06-06 23:43 | PD ---
HPI Chief Complaint: Cardiac arrest Time Seen by Provider: 23:40 Travel History International Travel<30 days: No Contact w/Intl Traveler<30days: No Traveled to known affect area: No History of Present Illness HPI Per EMS patient's family stated that the patient complained of shortness of breath shortly before becoming unresponsive and collapsing to the floor. 911 was called, chest compressions were initiated by family and continued by EMS. EMS started aN I/O, as well as [employer]bit[employer]. Allergies denied Past medical history shows evidence of [place] 2 AICD coronary stent 5 hypertension diabetes PFSH Past Medical History Hx Anticoagulant Therapy: Yes (asa 81mg) Cardiac Catheterization: Yes Cardiovascular Problems: Yes ([place]) High Cholesterol: Yes Chest Pain: Yes Coronary Artery Disease: Yes Diabetes: Yes Diminished Hearing: No Hypertension: Yes Immunizations Current: Yes (shingles also) Myocardial Infarction: Yes (X2) Past Surgical History Cardiac Surgery: Yes (AICD) Coronary Stent: Yes (x5) Pacemaker: Yes (AICD) Social History Alcohol Use: No Tobacco Use: No (QUIT ABOUT 1989/ SMOKED 06/23 PPD) Substance Use: No Allergies-Medications (Allergen,Severity, Reaction): Coded Allergies: No Known Allergies (Unverified Adverse Reaction, Unknown, 04/29/17) Reported Meds & Prescriptions Reported Meds & Active Scripts Active Tessalon Perles (Benzonatate) 100 Mg Cap 100 Mg PO TID PRN Reported Zithromax Z-Benson (Azithromycin) 250 Mg Dspk 250 Mg PO DIRECTED 500 MG (2 tabs) day 1, then 1 tab days 2-5. Aspirin 81 Mg Chew 81 Mg CHEW DAILY Symbicort Inh (Budesonide/Formoterol Fumarate) 80-4.5 Mcg/Act Aero 2 Puff INH Q12HR Ventolin Hfa 18 GM Inh (Albuterol Sulfate) 90 Mcg/Act Aer 2 Puff INH Q4-6H PRN Welchol (Colesevelam HCl) 625 Mg Tab 1,875 Mg PO BID Amlodipine (Amlodipine Besylate) 10 Mg Tab 10 Mg PO DAILY Atorvastatin (Atorvastatin Calcium) 80 Mg Tab 80 Mg PO HS Januvia (Sitagliptin Phosphate) 100 Mg Tab 100 Mg PO DAILY Metoprolol Tartrate 50 Mg Tab 50 Mg PO BID Enalapril (Enalapril Maleate) 20 Mg Tab 20 Mg PO BID Glimepiride 4 Mg Tab 4 Mg PO BIDAC Metformin (Metformin HCl) 1,000 Mg Tab 1,000 Mg PO BIDPC With meals Review of Systems ROS Limitations: Clinical Condition Physical Exam Exam Limitations: Clinical Condition Narrative GENERAL: SKIN: PALE HEAD: Atraumatic. Normocephalic. EYES: FIXED DILATED PUPILS,5MM VISHAL. No injection or drainage. ENT: Mucous membranes pink and moist. NECK: Trachea midline. No JVD. CARDIOVASCULAR: ASYSTOLE RESPIRATORY: APNEIC GASTROINTESTINAL: DISTENDED AND NO BOWEL SOUNDS MUSCULOSKELETAL: Extremities without clubbing, cyanosis, or edema. No obvious deformities. [id number] Medical Decision Making Medical Screen Exam Complete: Yes Emergency Medical Condition: Yes Medical Record Reviewed: Yes Differential Diagnosis N/A Narrative Course PATIENT WAS INTUBATED BY ME WITH 8-0 ETT, ADVANCED TO 24, GOOD COLOR CHANGE......PATIENT WAS IN PEA ASYSTOLE THE ENTIRE TIME OF ACLS PROVIDED, DESPITE MULTIPLE ROUNDS, OBTAINING A PERIPHERAL IV AND GIVEN EPI, ATROPINE AND BICARB...AFTER SEVERAL ROUNDS, BEDSIDE ULTRASOUND SHOWED NO CARDIAC ACTIVITY. Critical Care Narrative After the risks and benefits were discussed the following procedure was performed: INTUBATION: The patient was put in optimal position for the procedure. Rapid sequence intubation was initiated by me using [NO NEED] milligrams of etomidate IV and [NO NEED] milligrams of [-] IV. The patient was intubated with a [8-0] cuffed endotracheal tube. Tube placement was confirmed by visualization of the tube and balloon passing through the cords, capnometry and subsequent chest x- ray. Breath sounds were equal and well aerated bilaterally postintubation. No breath sounds over stomach. Patient tolerated procedure well. Diagnosis Primary Impression: S/P FULL ARREST Disposition: 20 SENT TO MED EXAMINR Condition: Gustavo Darling MD Jun 06, 2017 23:43
== END 2017-06-07 04:18 | disposition expired ==
LOC: NEPE 23:25 → NEPI 06-07 04:18
DX: I46.9 Cardiac arrest, cause unspecified (principal); I25.2 Old myocardial infarction; E78.00 Pure hypercholesterolemia, unspecified; I25.10 Atherosclerotic heart disease of native coronary artery without angina pectoris; E11.9 Type 2 diabetes mellitus without complications; Z79.82 Long term (current) use of aspirin; Z87.891 Personal history of nicotine dependence; Z79.84 Long term (current) use of oral hypoglycemic drugs; Z95.810 Presence of automatic (implantable) cardiac defibrillator; Z95.5 Presence of coronary angioplasty implant and graft
CPT/HCPCS: 31500; 92950; J0171; J0461